=== PATIENT | female | born 1975 | race Caucasian/White ===

== ENCOUNTER 2017-04-02 10:14 | Emergency (ER) | payer MEDICAID, OTHER ==
[2017-04-02 10:14] VITALS: BMI 25.0
--- NOTE | 2017-04-02 11:35 | C.PDOC ---
History Of Present Illness 41 year old female presents to the ED with complaints of general lesions for two weeks on the left lower back, abdominal wall, and right armpit. Patient states "it will burst, liquid will come out and then the lesion comes back again." She notes a sick contact with same symptoms. Patient denies any itching or fever. Time Seen by Provider: 04/02/17 11:30 Chief Complaint (Nursing): Abnormal Skin Integrity History Per: Patient History/Exam Limitations: no limitations Onset/Duration Of Symptoms: Persistent (2 weeks ) Current Symptoms Are (Timing): Still Present Quality Of Symptoms: Draining. denies: Itching Recent travel outside of the [place]: No Past Medical History Reviewed: Historical Data, Nursing Documentation, Vital Signs Vital Signs: Last Vital Signs Temp 98.1 F 04/02/17 11:44 Pulse 81 04/02/17 11:44 Resp 17 04/02/17 11:44 BP 115/63 04/02/17 11:44 Pulse Ox 99 04/02/17 11:44 - [facility] Procedures ARTIF RUPT [facility]BR[facility]ES NEC (05/10/13) MANUAL ASSIST DELIV NEC (05/10/13) Family History: States: Unknown Family Hx - Social History Hx Alcohol Use: No Hx Substance Use: No - Immunization History Hx Tetanus Toxoid Vaccination: Yes Hx Influenza Vaccination: Yes Hx Pneumococcal Vaccination: No Review Of Systems Constitutional: Negative for: Fever, Chills Cardiovascular: Negative for: Chest Pain Respiratory: Negative for: Shortness of Breath Skin: Positive for: Lesions Physical Exam - Physical Exam Appears: Non-toxic, No Acute Distress Skin: Warm, Dry, Other (Questionable MRSA lesion on the left lower back, abdominal wall, right armpit with minimal erythema. Non-tender, no pustules, and no fluctuance. ) Head: Atraumatic Eye(s): bilateral: Normal Inspection, PERRL, EOMI Oral Mucosa: Moist Throat: Normal, No Erythema, No Exudate Neck: Supple Chest: Symmetrical, No Deformity Cardiovascular: Rhythm Regular Respiratory: Normal Breath Sounds, No Rhonchi, No Wheezing Gastrointestinal/Abdominal: Soft, No Tenderness Extremity: Normal ROM, No Tenderness Neurological/Psych: Oriented x3 ED Course And Treatment O2 Sat by Pulse Oximetry: 98 (room air ) Disposition Counseled Patient/Family Regarding: Diagnosis, Need For Followup, Rx Given - Disposition Referrals: [facility] [Outside] [facility] [Outside] Disposition: HOME/ ROUTINE Disposition Time: 11:32 Condition: GOOD Prescriptions: Cephalexin [cephalexin] 500 mg PO BID #14 cap Sulfamethoxazole/Trimethoprim [Bactrim DS 800 mg-160 mg] 1 tab PO BID #14 tab Instructions: MRSA (Methicillin Resistant Staphylococcus Aureus) (ED) Print Language: CHINESE - Clinical Impression Clinical Impression: Skin lesion - Scribe Statement The provider has reviewed the documentation as recorded by the Scribdickson Streeter All medical record entries made by the Deniseibdickson were at my direction and personally dictated by me. I have reviewed the chart and agree that the record accurately reflects my personal performance of the history, physical exam, medical decision making, and the department course for this patient. I have also personally directed, reviewed, and agree with the discharge instructions and disposition.
[2017-04-02 11:45] VITALS: BP 115/63; PULSE 81; RESP 17; TEMP 98.1
[2017-04-02 12:26] VITALS: O2SAT 98
== END 2017-04-02 11:45 | disposition home or self-care (01) ==
LOC: C.ER 10:14
DX: L98.8 Other specified disorders of the skin and subcutaneous tissue (principal)

== ENCOUNTER 2018-06-11 07:51 | Emergency (ER) | payer OTHER ==
[2018-06-11 07:52] VITALS: BMI 25.0
--- NOTE | 2018-06-11 08:37 | C.PDOC ---
History Of Present Illness 42 year old female, with no PMHx, presents with sharp chest pain x 3 days. She states pain is located on her left upper chest, associated with numbness and tingling of her left arm. Patient states she has taken Advil, which helped relieve the pain. Otherwise she denies any specific trauma, SOB, nausea, vomiting, diaphoresis, fever, chills, cough, abdominal pain, or motor weakness. Patient works as hotel housecleaner floor. Time Seen by Provider: 06/11/18 08:10 Chief Complaint (Nursing): Chest Pain History Per: Patient History/Exam Limitations: no limitations Onset/Duration Of Symptoms: Days Current Symptoms Are (Timing): Still Present Past Medical History Reviewed: Historical Data, Nursing Documentation, Vital Signs Vital Signs: Last Vital Signs Temp 98.1 F 06/11/18 10:23 Pulse 66 06/11/18 10:23 Resp 16 06/11/18 10:23 BP 104/68 06/11/18 10:23 Pulse Ox 97 06/11/18 10:23 - [facility] Procedures ARTIF RUPT [facility]ES NEC (05/10/13) MANUAL ASSIST DELIV NEC (05/10/13) Family History: States: No Known Family Hx - Social History Hx Alcohol Use: No Hx Substance Use: No - Immunization History Hx Tetanus Toxoid Vaccination: Yes Hx Influenza Vaccination: Yes Hx Pneumococcal Vaccination: No Review Of Systems Except As Marked, All Systems Reviewed And Found Negative. Constitutional: Negative for: Fever, Chills, Sweats Cardiovascular: Positive for: Chest Pain (sharp, left upper chest) Respiratory: Negative for: Cough Gastrointestinal: Negative for: Nausea, Vomiting, Abdominal Pain Musculoskeletal: Positive for: Other (numbness and tingling of L arm) Neurological: Negative for: Weakness Physical Exam - Physical Exam Additional Physical Exam Comments: Constitutional: No acute distress. Head: Normocephalic. Atraumatic. Eyes: PERRL. ENT: Moist mucous membranes. Neck: Supple. Cardiovascular: Regular rate. Radial pulse 2+ bilaterally. Chest: Reproducible tenderness. Respiratory: Clear to auscultation bilaterally. GI: Soft. Nontender. Nondistended. Back: No CVA tenderness. Musculoskeletal: No tenderness or swelling of extremities. Skin: No rash. Neurologic: Alert, no focal deficit. ED Course And Treatment - Laboratory Results Result Diagrams: 06/11/18 08:48 06/11/18 08:48 O2 Sat by Pulse Oximetry: 98 (RA) Pulse Ox Interpretation: Normal Medical Decision Making Medical Decision Making: Impression: Chest pain Plan: -Labs -Chest X-Ray -Left Shoulder X-Ray -Toradol 30 mg IVP EKG NSR 60 bpm, no ST/T wave changes. CXR no acute disease. Shoulder XR no fracture or dislocation. F/u primary care and physical therapy, return to ED for worsening pain, dyspnea , or any other problem. Disposition - Disposition Disposition: HOME/ ROUTINE Disposition Time: 11:00 Condition: STABLE Prescriptions: Ibuprofen [Motrin] 1 tab PO Q6 #30 tab Instructions: Radiculopathy Forms: [employer] (Turkmen), Work Excuse - Clinical Impression Clinical Impression: Chest wall pain - Scribe Statement The provider has reviewed the documentation as recorded by the Martin Lambert Provider Attestation: All medical record entries made by the Deniseibdickson were at my direction and personally dictated by me. I have reviewed the chart and agree that the record accurately reflects my personal performance of the history, physical exam, medical decision making, and the department course for this patient. I have also personally directed, reviewed, and agree with the discharge instructions and disposition.
[2018-06-11 09:08] LABS: ALB/GLOB RATIO 1.2 (1.0-2.1); ALBUMIN 4.7 g/dL (3.5-5.0); ALT/SGPT 43 U/L (9-52); AST/SGOT 27 U/L (14-36); BLOOD UREA NITROGEN 14 mg/dL (7-17); CALCIUM 9.6 mg/dl (8.6-10.4); GFR NON-AFRICAN AMERICAN > 60
[2018-06-11 09:20] LABS: CK-MB 0.26 ng/mL (0.0-3.38)
[2018-06-11 09:46] LABS: BASO % 0.8 % (0.0-2.0); EOS # 0.8 K/uL (0.0-0.7); EOS % 15.4 % (0.0-4.0); HEMOGLOBIN 13.4 g/dL (11.0-16.0); LYMPH # 1.8 K/uL (1.0-4.3); LYMPH % 35.7 % (20.0-40.0); MEAN CORPUSCULAR HEMOGLOBIN 30.3 pg (27.0-31.0); MEAN CORPUSCULAR HGB CONC 35.2 g/dL (33.0-37.0); MEAN PLATELET VOLUME 7.6 fL (7.2-11.7); MONO # 0.4 K/uL (0.0-0.8); MONO % 8.1 % (0.0-10.0); NRBC % 0.1 % (0.0-2.0); RBC 4.43 Mil/uL (3.80-5.20); RED CELL DISTRIBUTION WIDTH 13.2 % (11.5-14.5); WHITE BLOOD COUNT 5.1 K/uL (4.8-10.8)
[2018-06-11 10:24] VITALS: BP 104/68; PULSE 66; RESP 16; TEMP 98.1
[2018-06-11 11:28] VITALS: O2SAT 98
--- NOTE | 2018-06-11 11:49 | RAD ---
Date of service: 06/11/2018 PROCEDURE: Radiographs of the Left Shoulder HISTORY: L shoulder pain COMPARISON: No prior. FINDINGS: BONES: No acute fracture. JOINTS: Unremarkable. SOFT TISSUES: Normal. OTHER FINDINGS: None. IMPRESSION: Demonstrated fracture or dislocation.
--- NOTE | 2018-06-11 11:49 | RAD ---
Date of service: 06/11/2018 HISTORY: chest pain COMPARISON: No prior. TECHNIQUE: Chest PA and lateral FINDINGS: LUNGS: Patchy nodular opacities in the right mid/ upper and left upper lungs. Prominent bronchovascular markings bilaterally. PLEURA: No significant pleural effusion identified. No pneumothorax apparent. CARDIOVASCULAR: Normal. OSSEOUS STRUCTURES: No significant abnormalities. VISUALIZED UPPER ABDOMEN: Normal. OTHER FINDINGS: None. IMPRESSION: Patchy nodular opacity in the right mid/ upper and left upper lungs. Prominent bronchovascular markings bilaterally. ER notification submitted electronically.
== END 2018-06-11 11:50 | disposition home or self-care (01) ==
LOC: C.ER 07:51
DX: R07.89 Other chest pain (principal)
CPT/HCPCS: 71046; 73030; 80053; 82550; 82553; 84484; 85025; 96374; 99285; J1885